=== PATIENT | male | born 1980 | race American Indian/Alaskan Native ===

== ENCOUNTER 2017-09-28 23:03 | Inpatient (IN) | payer MEDICAID, OTHER, SELFPAY ==
[2017-09-28 23:13] VITALS: BP 124/91; PULSE 123; RESP 18; TEMP 36.6
[2017-09-29] VITALS (7 sets, daily range): BP systolic 114–125; BP diastolic 61–91; PULSE 93–105; RESP 16–20; TEMP 36.3–37; O2SAT 97–100; BMI 33.3
--- NOTE | 2017-09-29 00:55 | ED_ITS ---
HPI - Nausea/Vomiting/Diarrhea General Chief complaint: Nausea/Vomiting/Diarrhea Stated complaint: bad hemorrhoids, no bowel movement Time Seen by Provider: 09/29/17 00:41 Source: patient Mode of arrival: ambulatory Limitations: no limitations History of Present Illness HPI Narrative: Patient 36-year-old male presents with vomiting for 5 days. He says he has been unable to have a bowel movement. He feels backed up no fevers. Diffuse abdominal pain. He says he has vomited at least of ?a gallon. Unable to keep anything down. He feels as though he does have some pressure in his rectum. Related Data Home Medications Medication Instructions Recorded Confirmed phenyleph-min oil-petrolatum 1 applic [place] QAM AND QHS 09/28/17 09/28/17 [Preparation H] Allergies Allergy/AdvReac Type Severity Reaction Status Date / Time No Known Drug Allergies Allergy Verified 09/28/17 23:17 Review of Systems Review of Systems All systems reviewed & are unremarkable except as noted in HPI and below Constitutional Denies chills, Denies fever(s), Denies lethargy and Denies weakness Cardiovascular Denies chest pain, Denies irregular heart rhythm, Denies lightheadedness, Denies palpitations, Denies dyspnea, Denies dyspnea on exertion and Denies orthopnea Respiratory Denies cough, Denies dyspnea, Denies dyspnea on exertion and Denies wheezing Gastrointestinal Gastrointestinal: Reports as per HPI Genitourinary Denies hematuria, Denies flank pain, Denies urinary incontinence and Denies urinary urgency Integumentary/Breasts Denies pruritus, Denies erythema, Denies rash and Denies wounds Neurologic Denies confusion, Denies focal weakness and Denies weakness Psychiatric Denies confusion Endocrine Denies palpitations Allergic/Immunologic Denies wheezing [facility] Medical History Arthritis (Acute) Hemorrhoid (Acute) Social History household members: family Smoking Status: Former smoker Exam Initial Vital Signs Initial Vital Signs: Vital Signs Temperature 98 F 09/28/17 23:13 Pulse Rate 123 H 09/28/17 23:13 Respiratory Rate 18 09/28/17 23:13 Blood Pressure 124/91 H 09/28/17 23:13 GENERAL: Alert young male appears in mild distress HEENT: Head atraumatic,EOMI, pupils reactive, dry mucous membranes CARDIOVASCULAR: Regular rate and rhythm without murmurs, rubs or gallops. RESPIRATORY: Breath sounds equal bilaterally, no wheezes rales or rhonchi. ABDOMEN: Distended no localization of pain kind of diffusely tender RECTAL: No internal rectal exam done. However the at that does not show any obvious abscess swelling or erythema. : No testicular erythema or pain : No CVA tenderness EXTREMITIES: Normal range of motion, no clubbing or edema. Neurovascularly intact NEUROLOGICAL: Alert and oriented x4.Normal gait and speech. Cranial nerves II through XII grossly intact. SKIN: Warm, dry, no laceration, no petechiae, no rashes or lesions. Course Orders Ordered: ED Orders 09/29/17 00:55 XR abdomen min 2V Stat Comprehensive Metabolic Panel Stat Lipase Stat 09/29/17 00:59 Complete Blood Count AUTO DIFF Stat 09/29/17 01:29 CT abdomen pelvis w con Stat 09/29/17 03:02 Blood Culture Stat Lactate (Lactic Acid) Stat 09/29/17 03:59 Consult to General Surgery Routine Acetaminophen (Tylenol) 650 mg PO Q6HR PRN PRN Reason: As Needed for Fever/Mild Pain Potassium Chloride 40 meq/ (Sodium Chloride) 520 mls @ 130 mls/hr IV NOW ONE Stop: 09/29/17 06:47 Last Admin: 09/29/17 05:04 Dose: 130 mls/hr Lactated Ringer's (Lactated Ringers) 1,000 mls @ 125 mls/hr IV CONT LYUDMILA Last Admin: 09/29/17 04:18 Dose: 125 mls/hr Ondansetron HCl (Zofran) 4 mg IV Q4HR PRN PRN Reason: Nausea And Vomiting Discontinued Medications Sodium Chloride (Normal Saline 0.9%) 1,000 mls @ 1,000 mls/hr IV CONT LYUDMILA Last Infusion: 09/29/17 02:22 Dose: 1,000 mls/hr Admin: 09/29/17 01:15 Dose: 1,000 mls/hr Piperacillin/Tazobactam/Dextrose (Zosyn) 3.375 gm in 50 mls @ 100 mls/hr IV NOW ONE Stop: 09/29/17 03:30 Last Admin: 09/29/17 05:03 Dose: 100 mls/hr Metronidazole (Flagyl) 500 mg in 100 mls @ 100 mls/hr IV NOW ONE Stop: 09/29/17 04:00 Last Infusion: 09/29/17 03:40 Dose: 100 mls/hr Admin: 09/29/17 03:34 Dose: 100 mls/hr Ondansetron HCl (Zofran) 4 mg IV NOW ONE Stop: 09/29/17 00:41 Last Admin: 09/29/17 01:15 Dose: 4 mg Pantoprazole Sodium (Protonix) 40 mg IV NOW ONE Stop: 09/29/17 00:41 Last Admin: 09/29/17 01:15 Dose: 40 mg Vital Signs - 8 hr 09/28/17 23:13 09/29/17 02:14 09/29/17 03:38 Temperature 98 F 98 F Pulse Rate 123 H 105 H 105 H Respiratory Rate 18 16 16 Blood Pressure 124/91 H 124/91 H Blood Pressure [Left Arm] 125/71 H Pulse Oximetry 100 100 09/29/17 04:02 Temperature 97.9 F Pulse Rate 99 H Respiratory Rate 16 Blood Pressure 117/71 Blood Pressure [Left Arm] Pulse Oximetry 100 MDM - Nausea/Vomiting/Diarrhea Lab Data Attestation: I reviewed the patient's lab results. Result diagrams: 09/29/17 00:59 09/29/17 00:55 Lab Results 09/29/17 09/29/17 09/29/17 Range/Units 00:55 00:59 03:02 WBC 25.6 H (4.5-11.0) X10^3/uL RBC 6.19 H (4.5-5.9) X10^6/uL Hgb 16.0 (13.5-17.5) g/dL Hct 47.6 (41-53) % MCV 77.0 L (80-100) fL MCH 25.9 L (26-34) PG MCHC 33.6 (30-36) % RDW 14.4 (11.6-14.8) % Plt Count 458 H (150-400) X10^3/uL Neut % (Auto) Not Reportable Lymph % (Auto) Not Reportable [place] % (Auto) Not Reportable Eos % (Auto) Not Reportable Baso % (Auto) Not Reportable Total Counted 100 Seg Neutrophils % 75.0 H (38-70) % Band Neutrophils % 1.0 L (3-7) % Lymphocytes % (Manual) 16.0 L (25-45) % Monocytes % (Manual) 8.0 (2-11) % Neutrophils # (Manual) 63906 H (0653-6747) /uL RBC Morphology Normal morphology Sodium 133 L (137-145) mmol/L Potassium 2.7 L* (3.4-5.1) mmol/L Chloride 79 L (98-107) mmol/L Carbon Dioxide 39 H (22-32) mmol/L BUN 41 H (9-20) mg/dL Creatinine 1.50 H (0.66-1.25) mg/dL Estimated GFR 53.6 L (>60) mL/min BUN/Creatinine Ratio 27.3 H (6-22) Glucose 157 H (70-100) mg/dL Lactate 1.2 (0.7-2.1) mmol/L Calcium 8.3 L (8.4-10.2) mg/dL Total Bilirubin 1.3 (0.2-1.3) mg/dL AST 48 (17-59) IU/L ALT 41 (21-72) IU/L Alkaline Phosphatase 140 H (38-126) U/L Total Protein 9.7 H* (6.3-8.2) g/dL Albumin 4.3 (3.5-5.0) g/dL Globulin 5.4 H (1.7-4.1) g/dL Albumin/Globulin Ratio 0.8 L (1.0-2.8) Lipase 114 (23-300) U/L Imaging Data CT scan - abdomen: Radiologist's impression: Night should report: Pelvic abscesses in perirectal and. Vesicular regions which may be the result of prior diverticulitis or colitis for example. Other etiology not included. Irregular complex rim enhancing cystic lesion noted along the cranial posterior aspect of the bladder measuring 2 x 3.9 cm compatible with abscess with adjacent sigmoid colon wall thickening. This lesion may or may not communicate with the: However no ectopic gas is seen. Inflammatory complex cystic lesion of the perirectal region measures approximately 3 x 3.1 x 3.2 cm between the rectum and the prostate compatible with abscess. Proximal sigmoid colon as segmental wall thickening. No definite inflamed diverticulum seen. This may be residual sequela from prior diverticulitis for example. The inflammatory free fluid in the pelvis. A regional prominent lymph nodes. Infiltration of presacral space. No signs of appendicitis. No diverticulitis or mechanical small-bowel obstructions. Abdominal x-ray: Attestation: I personally reviewed and interpreted this imaging study as follows: My impression: constipation MDM Narrative Medical decision making narrative: The patient has significant leukocytosis 25 house in. And hypokalemic. Decision for CT for further evaluation of abdominal process. Pain is improving no longer vomiting. CT confirms abscesses. Discuss case with surgery Dr. marley ledesma. Recommends Zosyn and Flagyl. He accepts patient for admission. Discharge Plan Departure Patient Disposition: Admitted As Inpatient Clinical Impression: Abscess, rectum, Acute hypokalemia Discharge Date/Time: 09/29/17 03:40 Interventions: ED Discharge Assessment Last Done: 09/29/17 03:40 Admit Date/Time: 09/29/17 03:27 Admit Provider: Milton Lacy
--- NOTE | 2017-09-29 00:55 | DI.RAD.S_ITS ---
PROCEDURE: XR ABDOMEN MIN 2V INDICATIONS: pain vomiting TECHNIQUE: 2 views of the abdomen were acquired. COMPARISON: None. FINDINGS: Surgical changes and devices: None. Bowel: No pneumoperitoneum. The bowel gas pattern is normal. Soft tissues: No masses; visualized solid organ contours appear normal in size. No suspicious abdominal calcifications. Bones: No suspicious bony abnormalities. IMPRESSION: Normal KUB Dictated by: Mick Trejo M.D. on 09/29/2017 at 8:21 Approved by: Mick Trejo M.D. on 09/29/2017 at 8:22
[2017-09-29 01:10] LABS: Add Manual Diff / Slide Review YES; Hematocrit 47.6 % (41-53); Mean Corpuscular HGB Conc 33.6 % (30-36); Mean Corpuscular Hemoglobin 25.9 PG (26-34); Platelet Count 458 X10^3/uL (150-400); Red Blood Cell Count 6.19 X10^6/uL (4.5-5.9); Red Cell Distribution Width 14.4 % (11.6-14.8); White Blood Cell Count 25.6 X10^3/uL (4.5-11.0)
[2017-09-29] MEDS: PANTOPRAZOLE 40 MG VIAL IV (01:15)
[2017-09-29] MEDS: ONDANSETRON 4 MG/2 ML INJ IV ×2 (01:15→07:46)
[2017-09-29] MEDS: SODIUM CHLORIDE 0.9% 1,000 ML 1000 ML IV (01:15)
[2017-09-29 01:22] LABS: Alanine Aminotransferase 41 IU/L (21-72); Albumin 4.3 g/dL (3.5-5.0); Albumin Globulin Ratio 0.8 (1.0-2.8); Alkaline Phosphatase 140 U/L (38-126); Aspartate Aminotransferase 48 IU/L (17-59); BUN Creatinine Ratio 27.3 (6-22); Bilirubin Total 1.3 mg/dL (0.2-1.3); Blood Urea Nitrogen 41 mg/dL (9-20); Calcium 8.3 mg/dL (8.4-10.2); Carbon Dioxide 39 mmol/L (22-32); Chloride 79 mmol/L (98-107); Estimated Glomerular Filt Rate 53.6 mL/min (>60); Globulin 5.4 g/dL (1.7-4.1); Glucose 157 mg/dL (70-100); Lipase 114 U/L (23-300); Sodium 133 mmol/L (137-145)
--- NOTE | 2017-09-29 01:29 | DI.CT.S_ITS ---
PROCEDURE: CT ABDOMEN PELVIS W CON INDICATIONS: vomiting, no bowel movement, very high White blood cell count TECHNIQUE: After the administration of intravenous contrast, 5 mm thick sections acquired from the diaphragm to the symphysis. 5 mm coronal and sagittal reformats were acquired. For radiation dose reduction, the following was used: automated exposure control, adjustment of mA and/or kV according to patient size. COMPARISON: [facility], MR, PELVIS W/O CONTRAST, 01/22/2009, 9:45. FINDINGS: Preliminary report by senior editor radiology Image quality: Excellent. ABDOMEN: Lung bases: Lung bases are clear. Heart size is normal. Solid organs: Liver is normal in size and enhancement, mild fatty infiltration adjacent to the falciform ligament.. Gallbladder appears normal. Biliary system is non dilated. Pancreas enhances normally. Spleen is normal in size and enhancement. No adrenal nodules. Kidneys demonstrate normal size and enhancement, without hydronephrosis. In the posterior lower pole of the right kidney is a 3.4 cm hypodense mass with internal attenuation of 23 and somewhat thickened, edematous appearing wall. There is mild perinephric fat stranding around the right lower pole. Also noted are 2 small cortical hypodensities in the superior pole of the right kidney, likely cysts but indeterminate. Peritoneum and bowel: Small bowel loops demonstrate normal wall thickness and caliber. The appendix is not seen, no pericecal inflammation noted. The colon appears normal through see proximal sigmoid region. More distally, there is diffuse wall thickening in the rectosigmoid colon. No diverticula identified. In the anterior wall of the rectum is a thickwalled fluid cavity measuring 2.0 x 2.8 cm in diameter by 2.1 cm cranial caudal. A similar fluid collection is present adjacent to the mid sigmoid colon, overlying the dome of the urinary bladder. This collection measures 1.8 x 3.6 cm in diameter by 1.6 cm craniocaudal. There is diffuse urinary bladder wall thickening which is likely reactive to surrounding inflammation, cystitis not excluded. There is additional fat stranding within the posterior pelvis and slightly prominent regional lymph nodes such as a 9 mm right iliofemoral node on series 2/image 68. No free air. No apparent air bubbles within the suspected abscesses. Nodes and vessels: No retroperitoneal or mesenteric adenopathy by size criteria. Aorta and inferior vena cava are normal in size. Miscellaneous: No ventral hernias. PELVIS: Genitourinary: Bladder wall thickness is increased. Prostate appears normal, the posterior margin abutting the anterior aspect of the rectal abscess. Miscellaneous: No inguinal hernias or adenopathy. Bones: No suspicious bony lesions. Grade 1 anterolisthesis L5-S1. Fatty marrow replacement is noted from the inferior margin of S1 through the sacrum and coccyx as seen on sagittal images and corresponding to previous MRI study. No vertebral body compression fractures. IMPRESSION: 1. Perirectal and sigmoid abscesses, presumably secondary to rectosigmoid colitis which could represent Crohn's disease or other etiology. Diverticulitis is not seen and doubted as potential etiology. Fatty marrow replacement in the sacrum and coccyx could reflect previous radiation for ankylosing spondylitis. Such radiation may have affected the blood supply for the rectosigmoid colon. Correlation with clinical history is recommended. 2. A 3.4 cm hypodense complex cystic mass is present in the lower pole of the right kidney. This could represent a renal carbuncle or tumor and correlation with urinalysis is advised. In absence of prior exams, non-emergent CT abdomen with renal protocol is suggested. Findings are concordant with the preliminary report. Findings were reviewed with the attending surgeon in person. Dictated by: Mick Trejo M.D. on 09/29/2017 at 8:31 Approved by: Mick Trejo M.D. on 09/29/2017 at 9:09
[2017-09-29 01:37] LABS: Neutrophils Absolute Manual 19456 /uL (3000-5900); RBC Morphology Normal Morphology; Total Cells Counted 100
[2017-09-29 01:55] LABS: HEMOLYSIS 52 (0-50)
[2017-09-29 01:58] LABS: Potassium 2.7 mmol/L (3.4-5.1); Total Protein 9.7 g/dL (6.3-8.2)
--- NOTE | 2017-09-29 02:13 | PC.NURSE ---
Notified Dr Cheatham of critical potassium and total protein called by lab. Crow
[2017-09-29 03:23] LABS: Lactate (Lactic Acid) 1.2 mmol/L (0.7-2.1)
[2017-09-29] MEDS: metroNIDAZOLE 500 MG/100 ML PIGGYBACK 100 MG IV ×2 (03:34→21:41)
[2017-09-29] MEDS: LACTATED RINGERS 1,000 ML 125 ML IV (04:18)
[2017-09-29] MEDS: PIPERACILLIN-TAZO 3.375 GM/50 ML FROZ.PIGGY IV ×2 (05:03→20:55)
[2017-09-29] MEDS: POTASSIUM CHLORIDE 40 MEQ in SODIUM CHLORIDE 0.9% 500 ML 130 ML IV (05:04)
--- NOTE | 2017-09-29 05:36 | PC.NURSE ---
pt arrived at 0400 via stretcher. pt is ambulatory. denies nausea. btx4. NPO. IVF. VSS. oriented pt to the room. call light in reach.
[2017-09-29] MEDS: ACETAMINOPHEN 325 MG TABLET 650 MG PO (08:02)
[2017-09-29] MEDS: DEXTROSE 5%-0.45NS W/KCL 40MEQ 1,000 ML 84 MEQ IV (10:50)
[2017-09-29 11:37] LABS: Add Manual Diff / Slide Review NO; Basophils Percent Auto 0.6 % (0-2); Eosinophils Percent Auto 0.3 % (2-4); Hematocrit 41.2 % (41-53); Hemoglobin 13.6 g/dL (13.5-17.5); Lymphocytes Percent Auto 9.1 % (25-40); Mean Corpuscular Hemoglobin 25.7 PG (26-34); Mean Corpuscular Volume 77.9 fL (80-100); Monocytes Percent Auto 7.5 % (3-14); Neutrophils Absolute Auto 14700 /uL (3000-5900); Neutrophils Percent Auto 82.5 % (50-75); Platelet Count 356 X10^3/uL (150-400); Red Blood Cell Count 5.29 X10^6/uL (4.5-5.9); Red Cell Distribution Width 14.2 % (11.6-14.8); White Blood Cell Count 17.8 X10^3/uL (4.5-11.0)
[2017-09-29 11:40] LABS: BUN Creatinine Ratio 25.5 (6-22); Blood Urea Nitrogen 28 mg/dL (9-20); Calcium 7.9 mg/dL (8.4-10.2); Carbon Dioxide 39 mmol/L (22-32); Chloride 88 mmol/L (98-107); Estimated Glomerular Filt Rate > 60.0 mL/min (>60); Glucose 139 mg/dL (70-100); HEMOLYSIS < 15 (0-50); Sodium 137 mmol/L (137-145)
[2017-09-29 11:54] LABS: Appearance Urine UA CLEAR; Bilirubin Urine UA NEGATIVE (NEGATIVE); Color Urine UA YELLOW; Glucose Urine UA NEGATIVE (Normal); Ketones Urine UA TRACE (NEGATIVE); Leukocyte Esterase Urine UA NEGATIVE (NEGATIVE); Nitrite Urine UA Negative (Negative); Occult Blood Urine UA 1+ (Negative); Protein Urine UA TRACE (Negative); Specific Gravity Urine UA <=1.005 (1.000-1.035)
[2017-09-29 12:11] LABS: Bacteria Urine Many (>30); Culture Indicated Urine Specimen Cultured; RBC Urine 1-5/HPF (0-5/HPF); WBC Urine 5-10/HPF (0-5/HPF)
--- NOTE | 2017-09-29 15:18 | HP_ITS ---
DATE OF SERVICE: 09/29/2017 HISTORY OF PRESENT ILLNESS: A 36-year-old white male comes to the emergency room in the middle of the night with vomiting, constipation, some lower abdominal pain. He had an evaluation including a CBC showing a 25,[address] white count[address] He had CT which initially was interpreted to show a perirectal abscess between the prostate and the rectum. However, on thorough evaluation of the CT scan with in- house radiologist this morning, I have reviewed the entire imaging sequence, and the patient very likely has inflammatory bowel disease involving the segment of the upper rectum, lower sigmoid. This looks like a form of organized colitis such as Crohn's or ulcerative colitis, and there is an abscess on the dome of the bladder adjacent to the lower sigmoid and then another abscess between the prostate and rectum. Both these abscesses measure, at the greatest diameter, 3 cm then they go down to about 1.5 cm. They are irregular. There is no free intraperitoneal air. Discussing this with the radiologist here, we do not think percutaneous drainage could be accomplished because of the location of these abscesses, and furthermore, both abscesses are small enough now that if they were the result of residual post drainage abscesses, we would be satisfied with their size, so I am going to attempt reading these abscesses with IV antibiotic therapy. There is no loculated air in the abscesses. There is no air in the bladder. There is no free intraperitoneal air. I have started the patient on Flagyl and Zosyn and taking a more thorough history, the patient describes having bloody diarrhea on and off intermittently for 2 years. He sought medical attention for that, and they told him he probably had hemorrhoids, although he does have watery, bloody diarrhea. My suspicion is the patient has Crohn's of the colon. Once the acute process has been treated with IV antibiotics, then of course he needs a colonoscopy. I do not want to attempt a colonoscopy at this time. I would prefer to treat the acute infectious process. So he remains on Zosyn and Flagyl. We will begin a liquid diet as tolerated and follow his CBCs. Patient's been afebrile since he's been here, so that's our plan and impression. PAST MEDICAL HISTORY: Patient denies diabetes, heart disease, or hypertension. MEDICATIONS: He is really on no medications. ALLERGIES: HE HAS NO KNOWN DRUG ALLERGIES. REVIEW OF SYSTEMS: Denies unusual shortness of breath or chest pain. GI: As mentioned in HPI. is negative. NEUROLOGIC: No strokes, TIAs, or seizures. PHYSICAL EXAMINATION GENERAL: Patient is morbidly obese. VITAL SIGNS: BMI is 33.4. Blood pressure 117/71. Heart rate in the 90s. Respirations 16. Temperature 97.9. HEENT: Ears, nose, and throat are normal. NECK: No adenopathy. CHEST: Lungs are clear. HEART: Regular rhythm. No murmur. ABDOMEN: Very minimal low suprapubic tenderness. The peroneal anal exam shows no tenderness. I did not attempt to palpate that abscess around the prostate, but I elicit no tenderness in the perineum. IMPRESSION: Probable Crohn disease of the sigmoid. Upper rectum with 2 small pericolic abscess. Derick Kenney - /madhavi/brian doc#: [id number]/job#: [id number] dd: 09/29/2017 10:09:00 dt: 09/29/2017 15:07:00 DICTATING /COPIES TO: Milton Lacy MD COPIES MNE: LUIS ENRIQUE
[2017-09-29 19:05] LABS: Acinetobacter baumannii Not Detected (Not Detect); Enterococcus species Not Detected (Not Detect); KPC (carbapenem-resist gene) Not Detected (Not Detect); Listeria monocytogenes Not Detected (Not Detect); Staphylococcus species Not Detected (Not Detect); Streptococcus agalactiae (Gr B Not Detected (Not Detect); Streptococcus pneumonia Not Detected (Not Detect); Streptococcus pyogenes (Gr A) Not Detected (Not Detect); Streptococcus species Not Detected (Not Detect)
[2017-09-29 19:06] LABS: Candida albicans Not Detected (Not Detect); Candida glabrata Not Detected (Not Detect); Candida krusei Not Detected (Not Detect); Candida parapsilosis Not Detected (Not Detect); Candida tropicalis Not Detected (Not Detect); Enterobacter cloacae complex Not Detected (Not Detect); Haemophilus influenzae Not Detected (Not Detect); Neisseria meningitidis Not Detected (Not Detect); Proteus species Not Detected (Not Detect); Pseudomonas aeruginosa Not Detected (Not Detect); Serratia marcescens Not Detected (Not Detect)
[2017-09-29 19:07] LABS: E. coli Detected (Not Detect)
--- NOTE | 2017-09-29 20:40 | PC.NURSE ---
SHIFT NOTE A&Ox3. pt prefers to stay in bed to catch up on rest. pt states slight abdominal discomfort and discomfort with passing gas. also c/o lower back pain rated 4/10, states it's tolerable. denies any N/V although poor PO intake. received call from lab stating postive blood cultures for gram negative rods, ID'd as E. coli. Notified Dr. Lacy of lab results and that pt does not have any scheduled antibiotics (last does appear to be 1x doses). received orders to have antibiotics every 6 hours scheduled. call light within reach.
[2017-09-30 00:04] VITALS: BP 109/64; PULSE 98; RESP 16; TEMP 36.4; O2SAT 100
[2017-09-30] MEDS: ACETAMINOPHEN 325 MG TABLET 650 MG PO (00:45)
[2017-09-30] MEDS: DEXTROSE 5%-0.45NS W/KCL 40MEQ 1,000 ML 84 MEQ IV ×2 (00:45→14:41)
[2017-09-30] MEDS: PIPERACILLIN-TAZO 3.375 GM/50 ML FROZ.PIGGY IV ×4 (03:36→20:28)
[2017-09-30] MEDS: metroNIDAZOLE 500 MG/100 ML PIGGYBACK 100 MG IV ×4 (04:45→21:32)
[2017-09-30 05:39] VITALS: BP 119/61; PULSE 93; RESP 16; TEMP 36.3; O2SAT 99
[2017-09-30 08:00] VITALS: BP 125/66; PULSE 96; RESP 22; TEMP 37.1; O2SAT 99
[2017-09-30 11:31] LABS: Add Manual Diff / Slide Review NO; Basophils Percent Auto 0.6 % (0-2); Eosinophils Percent Auto 0.3 % (2-4); Hematocrit 39.9 % (41-53); Hemoglobin 13.4 g/dL (13.5-17.5); Lymphocytes Percent Auto 6.4 % (25-40); Mean Corpuscular HGB Conc 33.5 % (30-36); Mean Corpuscular Volume 77.4 fL (80-100); Monocytes Percent Auto 7.2 % (3-14); Neutrophils Absolute Auto 19800 /uL (3000-5900); Neutrophils Percent Auto 85.5 % (50-75); Platelet Count 416 X10^3/uL (150-400); Red Blood Cell Count 5.15 X10^6/uL (4.5-5.9); Red Cell Distribution Width 14.5 % (11.6-14.8); White Blood Cell Count 23.2 X10^3/uL (4.5-11.0)
[2017-09-30 12:58] LABS: BUN Creatinine Ratio 12.5 (6-22); Blood Urea Nitrogen 10 mg/dL (9-20); Calcium 8.1 mg/dL (8.4-10.2); Carbon Dioxide 36 mmol/L (22-32); Chloride 95 mmol/L (98-107); Estimated Glomerular Filt Rate > 60.0 mL/min (>60); Glucose 120 mg/dL (70-100); HEMOLYSIS 22 (0-50); Potassium 3.5 mmol/L (3.4-5.1); Sodium 137 mmol/L (137-145)
--- NOTE | 2017-09-30 14:30 | PC.NURSE ---
pt alert and oriented, vss, pain stated to be under control. Continues to suffer from firm, tender abdomen. States to be in a constant state of mild nauses (denied prns). IV antibiotics continued with IVFs, up to bathroom multiple times with one small nugget of BM produced. Continues with liquid diet, tolerating well. Educated grandparent/support persons importance of ambulation.
--- NOTE | 2017-09-30 15:03 | CM.DANOTE ---
Patient is a 36 year old male who was admitted on 09/29/17 for pain with bowel movements. Pt has [facility] for insurance and his PCP is not listed. EMR was reviewed. Per MD, pt making progress with IV-Abx and likely Crohns. Per RN, pt still on liquid diet and no orders yet to advance pt's diet. SW met bedside with pt and explained role and he confirmed that he lives in [place] with his grandparents and has other local supportive family. Pt states that he helps care for his grandparents although they are still mostly Independent and pt is not working. Pt is typically Independent with ADL's and is already aware that he needs to apply for Medicaid and be denied so that his [facility] will cover his medical needs. Pt states his family is aware and helping to complete this process. Pt does not anticipate any SW needs at d/c and preference is to d/c home with family support when medically stable. Pt states he is starting to feel a little better. Plan: SW to continue to follow for likely pt d/c home with family when medically stable. SW to follow once pt's diet is advanced to determine if any further d/c planning needs identified. VANE Graff Discharge Planning/Care Management CM Discharge Assessment Start: 09/30/17 15:01 Freq: Status: Active Protocol: Document 09/30/17 15:01 (Rec: 09/30/17 15:02 [id number]) Discharge Planning Assessment Assigned Speech Therapy Teacher VANE History Provided By Patient Has Patient been admitted in last 30 No days? Is this patient on Medicare? No Is the admit diagnosis the same? Yes Comment Likely Crohns Prior Living Arrangements House Household Members family Type of transporation used prior to Drives own vehicle admit Independent with ADL's Yes Is patient alert and oriented? Yes Caregiver for Another Yes: Lives with grandparents Referrals Initiated None needed Discharge Plan Home Transportation Arrangement Patient has local family who can likely provide transport Review Status In Process Next Review Type Discharge Review
[2017-09-30 15:32] VITALS: BP 125/68; PULSE 97; RESP 16; TEMP 37.7; O2SAT 100
[2017-09-30 19:27] VITALS: BP 123/70; PULSE 92; RESP 17; TEMP 37.2; O2SAT 99
--- NOTE | 2017-09-30 22:09 | PC.NURSE ---
Addendum entered by Genny Hong R.N. 09/30/17 23:09: pt with low-grade fever throughout the shift 99-100F. pt denies any fevers/chills. Original Note: SHIFT NOTE A&ox3. pt denies any abdominal pain, nausea, or vomiting. pt had 1 small soft stool, noted to have some blood in it which pt states was his normal before coming into the hospital. modified independent with ADLs, pt ambulating in hallway x1 this shift. pt noted to be eating noodle soup brought in by family, educated pt on full liquid diet order, pt verbalized understanding of not eating veggies and meat from soup. call light within reach.
[2017-10-01] VITALS (7 sets, daily range): BP systolic 118–135; BP diastolic 63–79; PULSE 90–112; RESP 16–18; TEMP 36.3–37.4; O2SAT 97–100
[2017-10-01] MEDS: PIPERACILLIN-TAZO 3.375 GM/50 ML FROZ.PIGGY IV ×4 (03:42→20:35)
[2017-10-01] MEDS: metroNIDAZOLE 500 MG/100 ML PIGGYBACK 100 MG IV ×4 (04:26→21:35)
--- NOTE | 2017-10-01 06:41 | PN_ITS ---
DATE OF SERVICE: 09/30/2017 SUBJECTIVE: The patient has been in the hospital a little over 24 hours now with, what my presumptive diagnosis is probable Crohn disease of the rectosigmoid junction with 2 small pericolic abscesses, one on the dome of the bladder and one between the rectum and prostate. Subjectively, he is feeling better. He has less abdominal pain. Actually, at the moment, no abdominal pain. He is not having any bloody diarrhea. OBJECTIVE: He is resting comfortably in bed. He is afebrile. LABORATORY DATA: I do not have his morning labs. Yesterday, his white count had fallen from 25,000 to 17,000. He remains on IV Flagyl and Zosyn. IMPRESSION: Improving on IV antibiotic therapy. PLAN: Continue the same therapy. Ultimately, he needs a colonoscopy with the eye on a possible resection of the rectosigmoid junction, depending on the findings of his colonoscopy. Derick Kenney - William/darling doc#: [id number]/job#: [id number] dd: 09/30/2017 10:45:00 dt: 10/01/2017 06:35:00 DICTATING /COPIES TO: Milton Lacy MD COPIES MNE: LUIS ENRIQUE
[2017-10-01] MEDS: DEXTROSE 5%-0.45NS W/KCL 40MEQ 1,000 ML 84 MEQ IV (08:04)
[2017-10-01 09:07] LABS: Add Manual Diff / Slide Review NO; Basophils Percent Auto 0.8 % (0-2); Eosinophils Percent Auto 0.7 % (2-4); Hematocrit 38.4 % (41-53); Hemoglobin 12.8 g/dL (13.5-17.5); Lymphocytes Percent Auto 9.8 % (25-40); Mean Corpuscular HGB Conc 33.3 % (30-36); Mean Corpuscular Hemoglobin 26.1 PG (26-34); Mean Corpuscular Volume 78.5 fL (80-100); Monocytes Percent Auto 7.3 % (3-14); Neutrophils Absolute Auto 17400 /uL (3000-5900); Neutrophils Percent Auto 81.4 % (50-75); Platelet Count 427 X10^3/uL (150-400); Red Blood Cell Count 4.89 X10^6/uL (4.5-5.9); Red Cell Distribution Width 14.3 % (11.6-14.8); White Blood Cell Count 21.3 X10^3/uL (4.5-11.0)
--- NOTE | 2017-10-01 09:21 | PN_ITS ---
DATE OF SERVICE: 10/01/2017 SUBJECTIVE: The patient has been in the hospital now for 48 hours. He has what I presume is Crohn colitis of the upper rectum and lower sigmoid with 2 pelvic abscesses. We are treating him with IV antibiotic therapy. These are small abscesses, measuring 2 cm to 3 cm each. Subjectively, the patient feels well with virtually no abdominal pain now. OBJECTIVE: He is afebrile. He has remained afebrile since he has been here. He is now pain-free. He had a small bowel movement this morning. He is tolerating a full liquid diet. LABORATORY DATA: I can't seem to get the laboratory to draw morning labs, so I do not have his white count this morning. Actually, his white count had been 25,000 and then 17,000, and then yesterday morning 23,000 again, and we don't have one from this morning. PLAN: My plan is to continue IV antibiotic therapy. The patient definitely needs a colonoscopy sometime in the next several weeks after this acute process has resolved, and we have control of the infection. At the moment he still has, as of yesterday morning, an elevated white count. We will repeat it this morning. Continue dual antibiotic therapy of Zosyn and Flagyl. Derick Kenney - /madhavi/darling doc#: [id number]/job#: [id number] dd: 10/01/2017 08:38:00 dt: 10/01/2017 09:12:00 DICTATING /COPIES TO: Milton Lacy MD COPIES MNE: LUIS ENRIQUE
--- NOTE | 2017-10-01 14:55 | PC.NURSE ---
1445 Pt resting in bed, A&Ox3, denies pain, cont w/IVF and IV antibx, oseas well. Afebrile. taking in full liq diet, denies nausea. Has had sml amt loose, brown BM x 2 this shift. Pt voiding brp/urinal. Family at bedside. Pt pleasant & cooperative.
[2017-10-02] MEDS: ONDANSETRON 4 MG/2 ML INJ IV ×3 (01:11→17:09)
[2017-10-02] MEDS: DEXTROSE 5%-0.45NS W/KCL 40MEQ 1,000 ML 84 MEQ IV ×2 (01:11→15:02)
[2017-10-02] MEDS: PIPERACILLIN-TAZO 3.375 GM/50 ML FROZ.PIGGY IV ×4 (02:34→21:09)
[2017-10-02] MEDS: metroNIDAZOLE 500 MG/100 ML PIGGYBACK 100 MG IV ×4 (03:52→22:33)
[2017-10-02 05:12] LABS: Add Manual Diff / Slide Review NO; Basophils Percent Auto 0.6 % (0-2); Eosinophils Percent Auto 0.8 % (2-4); Hemoglobin 11.9 g/dL (13.5-17.5); Lymphocytes Percent Auto 9.1 % (25-40); Mean Corpuscular Volume 78.8 fL (80-100); Monocytes Percent Auto 7.2 % (3-14); Neutrophils Absolute Auto 15000 /uL (3000-5900); Neutrophils Percent Auto 82.3 % (50-75); Platelet Count 451 X10^3/uL (150-400); Red Blood Cell Count 4.57 X10^6/uL (4.5-5.9); Red Cell Distribution Width 14.9 % (11.6-14.8); White Blood Cell Count 18.2 X10^3/uL (4.5-11.0)
[2017-10-02 05:21] VITALS: BP 127/77; PULSE 99; RESP 16; TEMP 36.2; O2SAT 99
[2017-10-02 08:23] VITALS: BP 125/72; PULSE 90; RESP 18; TEMP 36.6; O2SAT 99
[2017-10-02 15:57] VITALS: BP 121/71; RESP 18; TEMP 36.3; O2SAT 100
--- NOTE | 2017-10-02 16:09 | P.PN_ITS ---
Subjective Date Patient Seen: 10/02/17 Time Patient Seen: 12:07 Interval history: Derick reports that he continues to feel a little better. He is not feeling nauseated and he reports he is passing flatus. He still does not feel like eating and has not consumed any portion of his tray from breakfast or lunch. He says he still uncomfortable. He is lying on his side in the position holding a pillow. Exam Vital Signs (past 8 hours): - 10/02/17 08:23 10/02/17 15:57 Temperature 97.8 F 97.3 F L Pulse Rate 90 Respiratory Rate 18 18 Blood Pressure 125/72 H 121/71 H Pulse Oximetry 99 100 Oxygen Delivery Method Room Air Oxygen Flow Rate 0 Narrative Exam Narrative: Abdomen is soft but tender to palpation diffusely. More pronounced tenderness below the umbilicus. Voluntary guarding. No true rebound. Objective Labs Result Diagrams: 10/02/17 05:00 09/30/17 11:15 Labs: Laboratory Results - last 24 hr 10/02/17 05:00 WBC 18.2 H RBC 4.57 Hgb 11.9 L Hct 36.0 L MCV 78.8 L MCH 26.0 MCHC 33.0 RDW 14.9 H Plt Count 451 H Neut % (Auto) 82.3 H Lymph % (Auto) 9.1 L [place] % (Auto) 7.2 Eos % (Auto) 0.8 L Baso % (Auto) 0.6 Neut # (Auto) 13747 H Assessment & Plan Plan: Assessment/Plan Narrative: Patient continues on Zosyn and Flagyl. His white count is trending down, though slowly. His pain is also responding. We will keep him on his current doses of antibiotics. Encourage clear fluids intake if not full liquids.
[2017-10-02 19:43] VITALS: BP 127/69; PULSE 100; RESP 20; TEMP 36.7; O2SAT 97
[2017-10-03 00:30] VITALS: BP 134/86; PULSE 89; RESP 18; TEMP 36.6; O2SAT 100
[2017-10-03] MEDS: PIPERACILLIN-TAZO 3.375 GM/50 ML FROZ.PIGGY IV ×4 (02:16→21:17)
[2017-10-03] MEDS: DEXTROSE 5%-0.45NS W/KCL 40MEQ 1,000 ML 84 MEQ IV (03:37)
[2017-10-03] MEDS: metroNIDAZOLE 500 MG/100 ML PIGGYBACK 100 MG IV ×4 (03:37→21:16)
[2017-10-03 03:51] VITALS: BP 124/88; PULSE 135; RESP 20; TEMP 36.3; O2SAT 98
[2017-10-03 05:08] LABS: Add Manual Diff / Slide Review NO; Eosinophils Percent Auto 0.8 % (2-4); Hematocrit 36.8 % (41-53); Lymphocytes Percent Auto 12.3 % (25-40); Mean Corpuscular HGB Conc 32.6 % (30-36); Mean Corpuscular Hemoglobin 25.8 PG (26-34); Mean Corpuscular Volume 79.2 fL (80-100); Monocytes Percent Auto 6.8 % (3-14); Neutrophils Absolute Auto 13100 /uL (3000-5900); Neutrophils Percent Auto 79.1 % (50-75); Platelet Count 583 X10^3/uL (150-400); Red Blood Cell Count 4.65 X10^6/uL (4.5-5.9); Red Cell Distribution Width 14.8 % (11.6-14.8); White Blood Cell Count 16.6 X10^3/uL (4.5-11.0)
[2017-10-03 09:18] VITALS: BP 131/81; PULSE 103; RESP 16; TEMP 36.4; O2SAT 100
[2017-10-03] MEDS: ONDANSETRON 4 MG/2 ML INJ IV ×3 (12:03→20:17)
[2017-10-03 12:10] VITALS: BP 141/99; PULSE 100; RESP 16; TEMP 36.6; O2SAT 100
--- NOTE | 2017-10-03 12:19 | PC.NURSE ---
Addendum entered by Leonor Osei R.N. 10/03/17 14:55: patient had 200cc's bile emesis this afternoon while in the bathroom having small diarrhea stool. states he was not straining. only ate a few bites of soup for lunch. Original Note: patient states he feels tired from freq trips to the bathroom, including overnight which interrupts his sleep. states he is still having loose stools. nausea intermitt. he reports taking approx 6 sm bites of hot cereal this am at breakfast. he had nausea, w/ emesis/dry heaves mostly spit per inspector missile. zofran given. patient ambulated in halls and is up in recliner. states his abd discomfort is mostly a fullness sensation. declines need for pain medications.
--- NOTE | 2017-10-03 14:56 | PM.PN.1 ---
Subjective Date Patient Seen: 10/03/17 Time Patient Seen: 12:56 Interval history: Derick is in better spirits today. He is walking the halls for the 1st time today. He tells me again he is bored and wants to go home. He is asking about his white blood cell count wants to know if it is getting better. He says his pain is much better. His complaint today is that his back hurts from laying in bed so much. Exam Vital Signs (past 8 hours): - 10/03/17 09:18 10/03/17 12:10 Temperature 97.5 F L 97.8 F Pulse Rate 103 H 100 H Respiratory Rate 16 16 Blood Pressure 131/81 H 141/99 H Pulse Oximetry 100 100 Oxygen Delivery Method Room Air Oxygen Flow Rate 0 Narrative Exam Narrative: Abdomen is soft and minimally tender to palpation. Active bowel sounds. No rebound or guarding. Much improved. Extremities: Warm and well perfused Objective Labs Result Diagrams: 10/03/17 04:45 09/30/17 11:15 Labs: Laboratory Results - last 24 hr 10/03/17 04:45 WBC 16.6 H RBC 4.65 Hgb 12.0 L Hct 36.8 L MCV 79.2 L MCH 25.8 L MCHC 32.6 RDW 14.8 Plt Count 583 H Neut % (Auto) 79.1 H Lymph % (Auto) 12.3 L [place] % (Auto) 6.8 Eos % (Auto) 0.8 L Baso % (Auto) 1.0 Neut # (Auto) 33167 H [facility] CLIA ID [id number] [address] [place] [address] RUN DATE: 10/03/17 Specimen Inquiry PAGE 1 RUN TIME: 7628 Name: Derick Kenney Age/Sex: 36/M Attend Dr: Milton Lacy MD Unit#: [id number] : 1980Location: [facility] 231-1 Re09/29/17 Disch: Status: ADM IN Next Appt: Unknown Fax to: SPEC #: [id number] KAITLYNN: 09/29/17-301 STATUS: COMP REQ #: [id number] RECD: 09/29/17 [facility] [address]: Keesha Cheatham D.O. SOURCE: Blood ENTR: 09/29/17 OT : ELIEL: ORDERED: Bcult Procedure Result Verified Site Blood Culture Final 10/01/17 Organism 1 Escherichia coli Called To: [facility] 1. Escherichia coli M.I.C. RX --------- --- * Amikacin S * Ampicillin S * Ampicillin/Sulbactam S * Aztreonam S * Cefazolin S * Cefepime S Cefalotin S * Cefotetan S * Ceftizoxime S * Ceftriaxone S * Cefuroxime S * Ciprofloxacin S * Doripenem S * Ertapenem S * Gentamicin R * Imipenem S * Levofloxacin S * Meropenem S * Moxifloxacin S * Nalidixic Acid S * Norfloxacin S * Piperacillin S * Ticarcillin S * Tigecycline S * Tobramycin I * Trimethoprim/Sulfamethoxazole S * Piperacillin/Tazobactam S Assessment & Plan Plan: Assessment/Plan Narrative: 1. Likely Crohn's disease with intra-abdominal abscesses 2. Urosepsis with E coli bacteremia.-he is well covered with Zosyn and Flagyl. 3. White count is trending down so we will continue current treatment. Once white count drops below 10, we can likely switch to oral medication and allow him to go home.
[2017-10-03 15:24] VITALS: BP 130/77; PULSE 92; RESP 18; TEMP 37.1; O2SAT 100
[2017-10-03 20:02] VITALS: BP 133/74; PULSE 88; RESP 18; TEMP 37.1; O2SAT 99
[2017-10-04 01:26] VITALS: BP 100/57; PULSE 85; RESP 15; TEMP 36.6; O2SAT 100
[2017-10-04] MEDS: PIPERACILLIN-TAZO 3.375 GM/50 ML FROZ.PIGGY IV ×4 (01:53→20:09)
[2017-10-04] MEDS: metroNIDAZOLE 500 MG/100 ML PIGGYBACK 100 MG IV ×4 (02:32→21:30)
[2017-10-04] MEDS: ACETAMINOPHEN 325 MG TABLET 650 MG PO ×2 (02:34→15:35)
[2017-10-04 04:41] VITALS: BP 116/76; PULSE 80; RESP 15; TEMP 36.8; O2SAT 100
[2017-10-04 05:25] LABS: Add Manual Diff / Slide Review NO; Basophils Percent Auto 0.8 % (0-2); Eosinophils Percent Auto 1.2 % (2-4); Hematocrit 35.3 % (41-53); Hemoglobin 11.7 g/dL (13.5-17.5); Mean Corpuscular HGB Conc 33.2 % (30-36); Mean Corpuscular Hemoglobin 26.2 PG (26-34); Monocytes Percent Auto 6.7 % (3-14); Neutrophils Absolute Auto 10700 /uL (3000-5900); Neutrophils Percent Auto 80.3 % (50-75); Platelet Count 547 X10^3/uL (150-400); Red Blood Cell Count 4.47 X10^6/uL (4.5-5.9); Red Cell Distribution Width 14.5 % (11.6-14.8); White Blood Cell Count 13.3 X10^3/uL (4.5-11.0)
[2017-10-04] MEDS: DEXTROSE 5%-0.45NS W/KCL 40MEQ 1,000 ML 84 MEQ IV ×2 (05:57→21:30)
[2017-10-04 08:00] VITALS: BP 124/74; PULSE 82; RESP 18; TEMP 36.7; O2SAT 99
[2017-10-04 12:00] VITALS: BP 120/69; PULSE 79; RESP 18; TEMP 36.6; O2SAT 100
[2017-10-04 16:19] VITALS: BP 142/86; PULSE 89; RESP 18; TEMP 36.4; O2SAT 99
--- NOTE | 2017-10-04 18:50 | P.PN_ITS ---
Subjective Date Patient Seen: 10/04/17 Time Patient Seen: 18:48 Interval history: Derick reports he is feeling better. He says his pain is not really there anymore but he feels little gassy. He is having quite a bit of diarrhea. Exam Vital Signs (past 8 hours): - 10/04/17 12:00 10/04/17 16:19 Temperature 97.9 F 97.6 F Pulse Rate 79 89 Respiratory Rate 18 18 Blood Pressure 120/69 142/86 H Pulse Oximetry 100 99 Oxygen Delivery Method Room Air Oxygen Flow Rate 0 Narrative Exam Narrative: Much softer, no tenderness elicited, active bowel sounds. Objective Labs Result Diagrams: 10/04/17 04:54 09/30/17 11:15 Labs: Laboratory Results - last 24 hr 10/04/17 04:54 WBC 13.3 H RBC 4.47 L Hgb 11.7 L Hct 35.3 L MCV 79.0 L MCH 26.2 MCHC 33.2 RDW 14.5 Plt Count 547 H Neut % (Auto) 80.3 H Lymph % (Auto) 11.0 L [place] % (Auto) 6.7 Eos % (Auto) 1.2 L Baso % (Auto) 0.8 Neut # (Auto) 60461 H Assessment & Plan Plan: Assessment/Plan Narrative: Urosepsis/urinary tract infection in combination with enteritis and possibly Crohn's disease. We are going to continue his current antibiotics and plan to recheck his labs on Monday. If he has dropped below 10 on Monday, our plan is to let him go home. I am going to check his stool for C diff since he is having so much diarrhea.
[2017-10-04] MEDS: ONDANSETRON 4 MG/2 ML INJ IV (19:35)
[2017-10-04 20:15] VITALS: BP 130/74; PULSE 75; RESP 18; TEMP 36.5; O2SAT 100
--- NOTE | 2017-10-04 22:37 | PC.NURSE ---
10/04 2236 - pt alert and oriented x4, VSS on RA, eating only ounces of full liquid meals, drinking home brought juices, lemonades, gatorades. Pt states to have a fullness feeling with minimal intake, denies nausea with intakes. Complained of nausea once with relief provided by PRN antiemetic. PRN tylenol for back pain. IV antibiotics continued. Had shower this shift.
[2017-10-05 00:32] VITALS: BP 137/87; PULSE 87; RESP 16; TEMP 36.4; O2SAT 100
[2017-10-05] MEDS: ONDANSETRON 4 MG/2 ML INJ IV ×2 (00:38→15:15)
[2017-10-05 01:42] LABS: Clostridium Difficile Tox PCR Negative for C. diff
[2017-10-05] MEDS: PIPERACILLIN-TAZO 3.375 GM/50 ML FROZ.PIGGY IV ×4 (02:42→20:09)
[2017-10-05] MEDS: ACETAMINOPHEN 325 MG TABLET 650 MG PO (04:22)
[2017-10-05 04:24] VITALS: BP 136/85; PULSE 86; RESP 16; TEMP 36.8; O2SAT 98
[2017-10-05] MEDS: metroNIDAZOLE 500 MG/100 ML PIGGYBACK 100 MG IV ×4 (04:26→21:53)
[2017-10-05 08:00] VITALS: BP 136/86; PULSE 79; RESP 16; TEMP 36.6; O2SAT 99
[2017-10-05] MEDS: DEXTROSE 5%-0.45NS W/KCL 40MEQ 1,000 ML 84 MEQ IV (09:56)
[2017-10-05 13:27] VITALS: BP 136/83; PULSE 79; RESP 15; TEMP 36.7; O2SAT 100
--- NOTE | 2017-10-05 15:18 | PC.NURSE ---
PT HAD BOUT OF N/V DURING BEDSIDE SHIFT REPORT. 300 ML EMESIS. MEDICATED WITH 4 MG ZOFRAN PER EMAR.
[2017-10-05 15:30] VITALS: BP 121/76; PULSE 84; RESP 18; TEMP 36.4; O2SAT 98
--- NOTE | 2017-10-05 15:43 | PM.PN.1 ---
Subjective Date Patient Seen: 10/05/17 Time Patient Seen: 15:43 Interval history: Derick denies any pain but reports he did have 1 episode of vomiting today. He is feeling fine now. He also reports that he had a more solid bowel movement earlier today. He has continued to walk in the halls without difficulty. He has been afebrile today. Exam Vital Signs (past 8 hours): - 10/05/17 08:00 10/05/17 13:27 Temperature 97.9 F 98.1 F Pulse Rate 79 79 Respiratory Rate 16 15 Blood Pressure 136/86 H 136/83 H Pulse Oximetry 99 100 Oxygen Delivery Method Room Air Oxygen Flow Rate 0 Narrative Exam Narrative: Abdomen is soft and nontender. He does have hyperactive bowel sounds. Objective Labs Result Diagrams: 10/04/17 04:54 09/30/17 11:15 Labs: Laboratory Results - last 24 hr 10/05/17 00:40 C. difficile Tox (PCR) Negative for c. diff Assessment & Plan Plan: Assessment/Plan Narrative: 1. Improving after admission for urinary tract infection and intraperitoneal abscesses likely secondary to Crohn's disease. 2. Recheck labs in the morning 3. Advanced diet as desired
--- NOTE | 2017-10-05 17:02 | PC.NURSE ---
Addendum entered by Honey Jose R.N. 10/05/17 22:21: Pt up in hallway x two. Another episode of emesis, relief w/ zofran. Relatively uneventful evening, Call light w/in reach. Continue w/plan of care. Original Note: Pt had emesis at 1515, med w/zofran w/good relief. Denies discomfort at this time. IV D5 1/2 NS w/40meq KCL @ 84cc/hr infusing into the RAC via pump w/o incidence. Up amb. in hallway independently. Call light w/in reach.
[2017-10-05 20:38] VITALS: BP 137/87; PULSE 86; RESP 86; TEMP 36.6; O2SAT 98
--- NOTE | 2017-10-06 | DI.CT.S_ITS ---
PROCEDURE: CT ABDOMEN PELVIS W CON INDICATIONS: Intra-abdominal abscess, bowel obstruction TECHNIQUE: After the administration of oral and intravenous contrast, 5 mm thick sections acquired from the diaphragms to the symphysis. 5 mm thick coronal and sagittal reformats were performed. For radiation dose reduction, the following was used: automated exposure control, adjustment of mA and/or kV according to patient size. COMPARISON: [facility], CT, CT ABDOMEN PELVIS W CON, 09/29/2017, 1:27. FINDINGS: Image quality: Excellent. ABDOMEN: Lung bases: No acute consolidation. Mild bibasilar dependent scarring/atelectasis. Heart size is normal. Minimal distal esophageal circumferential wall thickening, nonspecific. This could be further evaluated with endoscopy as clinically warranted. Solid organs: Liver is normal in size and enhancement. Gallbladder negative. Biliary system is non-dilated. Pancreas enhances normally. Spleen is normal in size and enhancement. No adrenal nodules. No hydronephrosis. There is redemonstration of a right renal lesion measuring 4.4 x 5.4 cm on image 55. There is fluid attenuation centrally. No interval change. Peritoneum and bowel: No free air identified. There is inflammatory stranding the region of the sigmoid colon and rectosigmoid junction. The previously visualized fluid collection anterior to the rectum appears less conspicuous and slightly decreased in size measuring approximately 9 mm. There is no definite change in the additional fluid collection seen involving the dome of the urinary bladder measuring 4.9 x 1.5 cm. There is prominent gaseous distention of the colon measuring up to 7.8 cm which has progressed since prior study. No definite transition point is seen although this tapers to the rectosigmoid junction and sigmoid colon is filled with fluid. Nodes and vessels: No retroperitoneal or mesenteric adenopathy. Aorta and inferior vena cava are normal in caliber. Miscellaneous: No ventral hernias. PELVIS: Genitourinary: Bladder grossly unremarkable. Miscellaneous: No inguinal hernias or adenopathy. Bones: No suspicious bony lesions. Incidentally noted ankylosis of the sacroiliac joints No vertebral body compression fractures. IMPRESSION: Interval decrease in size of the fluid collection involving anterior wall of the rectum since 09/29/17. Persistent diffuse mild inflammatory stranding in the rectosigmoid junction as before. Additional fluid collection overlying the dome of the bladder is grossly unchanged. No new fluid collection. Development of gaseous distention of the colon which may be due to ileus versus developing distal bowel obstruction. Recommend clinical correlation and if necessary continued surveillance with abdominal radiographs. Heterogeneous solid and cystic mass involving the right kidney which could represent renal abscess versus tumor. Recommend further evaluation with dedicated renal protocol CT with contrast as previously suggested. Recommend correlation with urinalysis data and urology consultation. Dictated by: Shabbir Zuleta M.D. on 10/06/2017 at 8:02 Approved by: Shabbir Zuleta M.D. on 10/06/2017 at 8:53
--- NOTE | 2017-10-06 | DI.CT.S_ITS ---
PROCEDURE: CT ABDOMEN WO/W CON INDICATIONS: Renal lesion/abscess TECHNIQUE: Optional 5 mm thick noncontrast images acquired from the diaphragm to the iliac crests. After the administration of intravenous contrast, 5 mm thick images again acquired from the diaphragm to the iliac crests in the arterial and urographic phases. 5 mm thick coronal and sagittal reformats were then acquired. For radiation dose reduction, the following was used: automated exposure control, adjustment of mA and/or kV according to patient size. COMPARISON: [facility], CT, CT ABDOMEN PELVIS W CON, 09/29/2017, :27. [facility], CT, CT ABDOMEN PELVIS W CON, 10/06/2017, 8:18. FINDINGS: Image quality: Excellent. Lung bases: Bibasilar scarring/atelectasis are seen. Heart size is normal. Genitourinary: There is no hydronephrosis. Normal contrast excretion is noted bilaterally with normal contrast opacification of bilateral proximal to mid ureters. No filling defect is seen. Retained IV contrast within renal collecting systems from earlier CT of abdomen and pelvis study is seen. Fairly well-defined hypodense area within mid to lower pole of right renal cortex is again seen, and measures approximately 3.6 x 3.6 x 3.6 cm in size on the current study which is slightly increased in size compared to 3.4 cm measured on previous study dated 09/29/17. The size difference from earlier study on the same day is likely due to user perception as well as timing of contrast. This structure measures approximately 18 Hounsfield units during all phases of the scan and show no evidence of enhancement. No enhancing renal lesion is seen. No significant perinephric fat stranding or fluid is noted on the current study. Other solid organs: There is mild hepatic steatosis. No discrete hepatic lesion. Gallbladder is within normal limits. Biliary system is non dilated. Pancreas enhances normally. Spleen is normal in size and enhancement. No adrenal nodules. There is no gross bowel wall thickening. Small hiatal hernia is seen. No peritoneal free fluid or free air. Distended colon loops are noted with a few air-fluid levels, which may indicate ileus. Nodes and vessels: No retroperitoneal or mesenteric adenopathy by size criteria. Aorta and inferior vena cava are normal in caliber. Bones: No suspicious bony lesions. No vertebral body compression fractures. Miscellaneous: No ventral hernia is seen. IMPRESSION: 1. 3.6 x 3.6 x 3.6 cm fairly well-circumscribed hypodense structure involving lower pole of right kidney with no evidence of contrast enhancement and is only slightly increased in size compared to previous study. Finding is more suggestive of this being a benign renal cyst. Abscess collection or renal mass is much less likely given its current CT appearance. Urological correlation is recommended. This can be followed with renal ultrasound versus followup CT given the presence of pre-rectal fluid collection seen on previous CT study. 2. Distended colon loops with air-fluid levels which may indicate ileus. No peritoneal free fluid or free air is seen in the abdomen. Dictated by: Richy Arana M.D. on 10/06/2017 at 12:38 Approved by: Richy Arana M.D. on 10/06/2017 at 13:05
[2017-10-06 00:24] VITALS: BP 131/76; PULSE 88; RESP 16; TEMP 36.1; O2SAT 99
[2017-10-06] MEDS: DEXTROSE 5%-0.45NS W/KCL 40MEQ 1,000 ML 84 MEQ IV (01:47)
[2017-10-06] MEDS: PIPERACILLIN-TAZO 3.375 GM/50 ML FROZ.PIGGY IV ×2 (03:01→08:56)
[2017-10-06] MEDS: metroNIDAZOLE 500 MG/100 ML PIGGYBACK 100 MG IV ×2 (03:55→10:21)
[2017-10-06 05:22] LABS: Add Manual Diff / Slide Review NO; Basophils Percent Auto 0.8 % (0-2); Eosinophils Percent Auto 1.2 % (2-4); Hematocrit 40.1 % (41-53); Lymphocytes Percent Auto 13.9 % (25-40); Mean Corpuscular HGB Conc 32.5 % (30-36); Mean Corpuscular Hemoglobin 25.9 PG (26-34); Mean Corpuscular Volume 79.5 fL (80-100); Monocytes Percent Auto 6.2 % (3-14); Neutrophils Absolute Auto 11600 /uL (3000-5900); Neutrophils Percent Auto 77.9 % (50-75); Platelet Count 693 X10^3/uL (150-400); Red Blood Cell Count 5.04 X10^6/uL (4.5-5.9); Red Cell Distribution Width 14.8 % (11.6-14.8); White Blood Cell Count 14.8 X10^3/uL (4.5-11.0)
[2017-10-06 05:33] LABS: BUN Creatinine Ratio 6.7 (6-22); Blood Urea Nitrogen 6 mg/dL (9-20); Calcium 8.6 mg/dL (8.4-10.2); Carbon Dioxide 29 mmol/L (22-32); Chloride 107 mmol/L (98-107); Estimated Glomerular Filt Rate > 60.0 mL/min (>60); Glucose 86 mg/dL (70-100); HEMOLYSIS < 15 (0-50); Sodium 144 mmol/L (137-145)
[2017-10-06 05:45] VITALS: BP 139/88; PULSE 88; RESP 16; TEMP 36.9; O2SAT 99
[2017-10-06 08:00] VITALS: BP 136/80; PULSE 80; RESP 18; TEMP 37; O2SAT 98
--- NOTE | 2017-10-06 08:21 | PC.NURSE ---
CONTRAST GIVEN TO PT. AT APPROX 0710 INSTRUCTED TO DRINK TO INDICATED LINE. CONTRAST CONSUMED. PT OFF UNIT FOR SCAN. LEFT VIA W/C.
[2017-10-06] MEDS: ONDANSETRON 4 MG/2 ML INJ IV (09:03)
--- NOTE | 2017-10-06 09:07 | PC.NURSE ---
PT RETURNED FROM SCAN. RECONNECTED IVF. REFUSED BREAKFAST. PT REPORTS NAUSEA. 300 ML EMESIS. MEDICATED WITH ZOFRAN. IVF ABX INFUSING PER EMAR.
[2017-10-06 12:00] VITALS: BP 127/85; PULSE 80; RESP 18; TEMP 36.8; O2SAT 99
--- NOTE | 2017-10-06 12:02 | PC.NURSE ---
IV SITE TODAY. PT REFUSED REMOVAL AND NEW IV START. PT VERBALIZED UNDERSTANDING OF INFECTION RISKS.
--- NOTE | 2017-10-06 14:13 | PM.DS.1 ---
History of Present Illness Date Patient Seen: 10/06/17 Time Patient Seen: 14:13 Chief complaint: bad hemorrhoids, no bowel movement Narrative: Very pleasant gentleman admitted with peritoneal abscesses of unknown etiology. He was originally thought to have perianal abscesses but in fact his presentation is more consistent with inflammatory bowel disease and small-bowel micro perforation. On the day of admission, he was started on Augmentin and Flagyl. His admitting white blood cell count was 25,000. Discharge Providers Date of admission: 09/29/17 03:27 Consults: 09/29/17 03:59 Consult to General Surgery Routine Comment: Consulting Provider: Milton Lacy Reason for consultation: rectal abscess Has provider been notified: Yes Discharge provider: Sallie Velasquez MD Summary Discharge Diagnosis: Intraperitoneal abscesses of unknown etiology Urinary tract infection with sepsis Hospital Course: Derick was admitted and started on Augmentin and Flagyl as stated above. [place] [address] and stayed elevated for several days. He began to feel better and his diarrhea has slowly improved to intermittent more solid stools. He still suffers from nausea. He has been eating smoothies and protein shakes. He eats better when his family is around. Repeat CT scan done today revealed a fluid-filled lesion in his right kidney. Follow-up renal protocol study reveals this to be most consistent with a simple renal cyst. Blood cultures and urine cultures both grew E coli that was pansensitive. At this time, Derick is afebrile, walking unassisted, and tolerating a limited regular diet. He is being discharged to his home in the care of his grandparents. Discharge medication will include Levaquin. He will follow up with me in 2 weeks and have labs on the morning prior to his follow-up appointment. Prescription has been transmitted to the [place] pharmacy. Lab orders are in the computer. Status at Discharge Cognitive/behavioral status at discharge: Essentially normal Functional status at discharge: independent ambulation Overall status at discharge: patient is progressing back to baseline Time Spent with Patient Less than 30 minutes Exam Vital Signs (past 8 hours): - 10/06/17 08:00 10/06/17 12:00 Temperature 98.6 F 98.3 F Pulse Rate 80 80 Respiratory Rate 18 18 Blood Pressure 136/80 H 127/85 H Pulse Oximetry 98 99 Oxygen Delivery Method Room Air Oxygen Flow Rate 0 Objective Labs Result Diagrams: 10/06/17 04:45 10/06/17 04:45 Labs: Laboratory Results - last 24 hr 10/06/17 10/06/17 04:45 04:45 WBC 14.8 H RBC 5.04 Hgb 13.0 L Hct 40.1 L MCV 79.5 L MCH 25.9 L MCHC 32.5 RDW 14.8 Plt Count 693 H Neut % (Auto) 77.9 H Lymph % (Auto) 13.9 L [place] % (Auto) 6.2 Eos % (Auto) 1.2 L Baso % (Auto) 0.8 Neut # (Auto) 37184 H Sodium 144 Potassium 4.0 Chloride 107 Carbon Dioxide 29 BUN 6 L Creatinine 0.90 Estimated GFR > 60.0 BUN/Creatinine Ratio 6.7 Glucose 86 Calcium 8.6 Discharge Plan Discharge Plan Patient Disposition: Home, Self-Care Provider Discharge Instructions Diet: Diet as Tolerated Activity: As tolerated Wound Care Report to your healthcare provider any signs of infection, such as:: chills, fever, night sweats and increased pain Discharge Data Attending Provider: Milton Lacy Admit Date/Time: 09/29/17 03:27
== END 2017-10-06 15:00 | disposition home or self-care (01) | DRG 385 ==
LOC: ED 09-29 03:14 → AC 09-29 03:28
PROVIDERS: Surgery; Admitting Provider Surgery; Emergency Provider Emergency Medicine; Visit Provider Surgery
DX: K50.114 Crohn's disease of large intestine with abscess (principal); K65.1 Peritoneal abscess; R78.81 Bacteremia; N39.0 Urinary tract infection, site not specified; E66.9 Obesity, unspecified; Z68.33 Body mass index [BMI] 33.0-33.9, adult; Z87.891 Personal history of nicotine dependence; E87.6 Hypokalemia; B96.20 Unspecified Escherichia coli [E. coli] as the cause of diseases classified elsewhere
CPT/HCPCS: 36415; 36591; 74019; 74170; 74177; 80048; 80053; 81001; 83605; 83690; 85025; 87040; 87077; 87086; 87150; 87186; 87205; 87493; 96365; 96367; 96375; 99283; 99285; C9113; J2405; J2543; J3480; Q9967

== ENCOUNTER 2017-11-28 11:42 | Day surgery (SDC) | payer MEDICAID, SELFPAY ==
[2017-10-06 14:10] VITALS: BMI 33.3
[2017-11-28 12:18] VITALS: BP 125/83; PULSE 78; RESP 16; TEMP 37.3; O2SAT 98; BMI 33.0
[2017-11-28] MEDS: SODIUM CHLORIDE 0.9% 1,000 ML 200 ML IV (12:20)
[2017-11-28] MEDS: FLEETS ENEMA 1 EACH PR (12:30)
--- NOTE | 2017-11-28 12:47 | SUR.PREOP ---
pt used restroom, output cloudy with yellow sediment, dr jiménez notified, fleets enema given, output now brownish and can not see bottom of bowl.
--- NOTE | 2017-11-28 22:23 | SUR.PREOP ---
late entry: dr jiménez made aware of stool after fleets enema, case cancelled, pt referred to office to reschedule for tomorrow. pt left in stable;e condition.
== END 2017-11-28 14:00 | disposition home or self-care (01) ==
PROVIDERS: Visit Provider Surgery
PROC: 0DJD8ZZ Inspection of Lower Intestinal Tract, Via Natural or Artificial Opening Endoscopic (ICD-10-PCS; CPT 45378; principal; 2017-11-28 13:00)
DX: Z53.09 Procedure and treatment not carried out because of other contraindication (principal); K62.5 Hemorrhage of anus and rectum
CPT/HCPCS: 45378

== ENCOUNTER 2017-11-30 09:38 | Day surgery (SDC) | payer MEDICAID, OTHER, SELFPAY ==
[2017-10-06 14:10] VITALS: BMI 33.3
--- NOTE | 2017-11-30 | PATH_ITS ---
[facility] Accession Number: [id number] . 01 Material submitted: . RANDOM COLON MUCOSAL BIOPSIES . 02 Diagnosis: Random Colon, Biopsies: Colonic mucosa with no diagnostic abnormality. Negative for active or microscopic colitis. Negative for granulomata, dysplasia or malignancy. V/12/04/2017 . 02 Electronically signed: . Gunnar Hernandez MD, PhD, Pathologist NPI- [id number] . 01 Gross description: . RANDOM COLON MUCOSAL BIOPSIES: Received in formalin are 2 fragment(s) of tate, soft tissue measuring 0.6 x 0.5 x 0.1 cm to 0.6 x 0.4 x 0.1 cm submitted entirely in 1 cassette(s) /CKI /CKI . 02 Pathologist provided ICD-10: R19.4 . 02 CPT . 528277 Specimen Comment: A duplicate report has been generated due to demographic updates. Performed at: 01 [facility] [address] [facility], [place], [place] [id number] MD Mio Pete MD Phone: [phone] Performed at: 02 [facility] [address] [place], [place] [id number] MD Ryan Hall MD Phone: [phone]
[2017-11-30] MEDS: SODIUM CHLORIDE 0.9% 1,000 ML 200 ML IV (11:03)
[2017-11-30 11:05] VITALS: BP 121/79; PULSE 77; RESP 16; TEMP 37; O2SAT 98; BMI 33.0
--- NOTE | 2017-11-30 11:31 | PM.HP.1 ---
History of Present Illness Date Patient Seen: 11/30/17 Time Patient Seen: 11:32 Chief complaint: [id number] COLONOSCOPY Narrative: Derick is a very pleasant young man who is well known to me from his recent admission to the hospital. He was admitted with rectal bleeding and abdominal pain. He suffers from rheumatoid arthritis and presents today for a colonoscopy. He reports he has had no more rectal bleeding since being discharged from the hospital. Patient History Medical History Arthritis (Acute) Hemorrhoid (Acute) Family & Social History Family History: Reviewed 11/30/17 by Sallie Velasquez MD Social History: household members family Tobacco & Substance use: Smoking Status Former smoker alcohol intake never alcohol intake frequency 0-2 drinks per day Substance Use Type marijuana Meds Home Medications Medication Instructions Recorded Confirmed Type No Known Home Medications 11/30/17 11/30/17 History Allergies Allergy/AdvReac Type Severity Reaction Status Date / Time No Known Drug Allergies Allergy Verified 09/28/17 23:17 Review of Systems Review of Systems He reports significant bone and joint pain but says it is under better control now than it has been in the past few weeks. All systems reviewed & are unremarkable except as noted in HPI and below Exam Vital Signs (past 8 hours): - 11/30/17 11:05 Temperature 98.6 F Pulse Rate 77 Respiratory Rate 16 Blood Pressure 121/79 Pulse Oximetry 98 Oxygen Delivery Method Room Air Narrative Exam Narrative: Pleasant young man in no distress HEENT: Normocephalic and atraumatic, pupils equal round reactive to light accommodation with anicteric sclera Lungs: Clear to auscultation bilaterally Heart: Regular rate and rhythm without murmur rub or gallop Abdomen: Soft, nontender, active bowel sounds Extremities: Warm and well perfused Assessment & Plan Plan: Assessment/Plan Narrative: Very pleasant gentleman with recent admission to the hospital for what was thought to be colitis with rectal bleeding. We discussed the risks and benefits of colonoscopy with the patient he has expressed a desire to have the procedure.
[2017-11-30] MEDS: ONDANSETRON 4 MG/2 ML INJ IV (12:02)
[2017-11-30 12:13] VITALS: BP 121/86; PULSE 82; RESP 18; TEMP 36.3; O2SAT 95
[2017-11-30] MEDS: fentaNYL 250 MCG/5 ML INJ IV (12:14)
[2017-11-30] MEDS: MIDAZOLAM 5 MG/5 ML VIAL IV (12:15)
[2017-11-30 12:18] VITALS: BP 134/99; PULSE 86; RESP 20; O2SAT 95
[2017-11-30 12:23] VITALS: BP 134/94; PULSE 85; RESP 18; O2SAT 95
[2017-11-30 12:30] VITALS: BP 134/92; PULSE 88; RESP 20; TEMP 37.7; O2SAT 95
[2017-11-30 12:57] VITALS: BP 139/97; PULSE 91; RESP 14; TEMP 37; O2SAT 95
--- NOTE | 2017-11-30 17:09 | PM.OP.1 ---
Operative Date/Time/Diagnoses Date of procedure: 11/30/17 Time of procedure: 12:09 Pre-op diagnosis: Colitis Post-op diagnosis: same Procedure & Clinicians Procedure: Flexible sigmoidoscopy with biopsies Same procedure as scheduled: No (Colonoscopy was scheduled) Indications: No prior colonoscopy Surgeon: Sallie Velasquez Anesthesia Type: Sedation (Fentanyl and Versed) Operative Notes Findings: 1. Adequate prep 2. Unable to pass the scope beyond 40 cm due to collapse of the colon. May simply be an acute angle that I am not able to navigate. 3. Normal-appearing sigmoid colon and rectum 4. Grade 1 internal hemorrhoids Closure Type: not applicable Specimen(s): other (Random mucosal biopsies) Estimated Blood Loss (mL): 1 Procedure in detail: After obtaining informed consent, the patient was brought to the GI suite and placed in the left lateral decubitus position on the examination table. After placement of appropriate monitors, the patient was given incremental doses of Versed and Fentanyl until an appropriate level of sedation was achieved. A time out was held per SCOAP protocol. A digital rectal examination was performed and did not reveal any masses or obstructing lesions. The colonoscope was gently passed into the patient's anus and the colon navigated to approximately 40 cm. At this point there was either a fold or swelling in the colon that I was not able to navigate. Multiple changes of position as well as the external pressure were applied to try to reorient the colon. None of these maneuvers was successful. Due to safety concerns, I elected to abort the procedure at this level. The scope was then withdrawn be sure to go before and beyond mucosal folds and prominences that were visible. Multiple random mucosal biopsies were taken. At the level of the rectal vault, the scope was retroflexed and the internal anal canal was examined. The scope was straightened and air aspirated from the colon. The instrument was removed from the patient's body and the procedure was concluded.The patient was allowed to awaken from sedation without difficulty and taken to the post-anesthesia care unit in good condition. Complications: other (Unable to complete the scheduled procedure) Condition: stable Disposition: PACU Plan for aftercare: 1. Discharge to home 2. Plan for outpatient barium enema to complete the study 3. We will contact the patient with pathology results and any other recommendations 4. I would strongly recommended any further studies be scheduled with an anesthesiologist.
== END 2017-11-30 13:03 | disposition home or self-care (01) ==
PROVIDERS: PCP Family Medicine; Visit Provider Surgery
PROC: 0DJD8ZZ Inspection of Lower Intestinal Tract, Via Natural or Artificial Opening Endoscopic (ICD-10-PCS; CPT 45378; principal; 2017-11-30 11:45)
DX: K52.9 Noninfective gastroenteritis and colitis, unspecified (principal); K64.0 First degree hemorrhoids; Z87.891 Personal history of nicotine dependence; M06.9 Rheumatoid arthritis, unspecified
CPT/HCPCS: 45331; 88305; J2250; J2405; J3010

== ENCOUNTER → 2017-12-21 11:08 | Outpatient (CLI) | payer MEDICAID, OTHER, SELFPAY ==
[2017-10-06 14:10] VITALS: BMI 33.3
--- NOTE | 2017-12-21 11:12 | DI.RAD.S_ITS ---
PROCEDURE: FL ABDOMEN 1V (BARIUM ENEMA) INDICATIONS: Incomplete colonoscopy TECHNIQUE: One view of the abdomen acquired. COMPARISON: [facility], , PELVIS WITH BILATERAL HIPS, 06/21/2012, 15:39. FINDINGS: A scheduled barium enema was unable to be performed. The patient was unable to tolerate rectal catheterization Surgical changes and devices: None. Bowel: Bowel gas pattern is normal. Soft tissues: No suspicious abdominal calcifications. Visualized solid organ contours appear normal in size. Ankylosis of the sacroiliac joints bilaterally, chronic. Bilateral hip degeneration. IMPRESSION: Normal bowel gas pattern. Of note, scheduled barium enema was canceled as detailed above. 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 Dictated by: Shabbir Zuleta M.D. on 12/21/2017 at 13:31 Approved by: Shabbir Zuleta M.D. on 12/21/2017 at 13:36
== END ==
PROVIDERS: PCP Family Medicine; Visit Provider Surgery
DX: R93.3 Abnormal findings on diagnostic imaging of other parts of digestive tract (principal); M16.0 Bilateral primary osteoarthritis of hip; M43.28 Fusion of spine, sacral and sacrococcygeal region
CPT/HCPCS: 74018

== ENCOUNTER 2021-03-05 08:17 | Emergency (ER) | payer MEDICAID, OTHER, SELFPAY ==
[2017-10-06 14:10] VITALS: BMI 33.3
[2021-03-05 08:08] VITALS: PULSE 0; RESP 0
--- NOTE | 2021-03-05 08:42 | ED.CPR ---
HPI - CPR General Chief Complaint: Cardiac Arrest/CPR Stated Complaint: Overdose Time Seen by Provider: 03/05/21 08:41 History of Present Illness HPI narrative: Patient is a 40-year-old male who suffers from chronic pain mostly in his abdomen according to his mother he takes Tylenol and ibuprofen for he said it for multiple years. He recently felt sick a few days ago went to the clinic on [place] what happened there. This morning he collapsed in the living room as brother found down unresponsive started CPR. EMS gave him 2 doses narcan woke up and vomited, however again quickly lost pulses went into a V-tach arrest was shocked given amiodarone then went into asystole given epinephrine placed on epinephrine drip. Pulses have never yet been regained her down time is about 40 minutes. No known history history of opioid abuse. Related Data Home Medications Medication Instructions Recorded Confirmed No Known Home Medications 11/30/17 11/30/17 Allergies Allergy/AdvReac Type Severity Reaction Status Date / Time No Known Drug Allergies Allergy Verified 03/05/21 09:16 Review of Systems Review of Systems ROS Unobtainable: Unobtainable due to medical condition Patient History Medical History (Updated 03/05/21 @ 09:11 by Keesha Cheatham DO) Arthritis Hemorrhoid Family History Grandfather Hypertension Heart disease Social History household members: family Smoking Status: Former smoker alcohol intake: never substance use type: marijuana Smoking Status: Former smoker alcohol intake frequency: 0-2 drinks per day Substance Use Type: marijuana Exam Initial Vital Signs Initial Vital Signs: Vital Signs Pulse Rate 0 L 03/05/21 08:08 Respiratory Rate 0 L 03/05/21 08:08 Gen.: Unresponsive cyanotic intubated HEENT: Fixed nonresponsive Neck: No carotid pulses no JVD Lungs: No air Cardiac: No pulses no cardiac activity Abdomen: Soft Extremities: No gross bony deformities cool to touch Neurologic: Unresponsive, GCS 3 Skin: Mottled Course Orders Ordered: ED Orders 03/05/21 08:32 COVID19 -Nasal swab/Pre-Proc Stat MDM - Cardiac Arrest/CPR Lab Data Labs: Lab Results 03/05/21 Range/Units 08:32 SARS-CoV-2 (PCR) Negative (Negative) MDM Narrative Medical decision making narrative: ACLS protocol followed he is given more epinephrine CPR continued pulse check he remains in asystole. Down time now for 45 minutes no cardiac activity seen on ultrasound. He remains cool and cyanotic. Time of 8:31 a.m. Discharge Plan Departure Patient Disposition: Clinical Impression: Cardiac arrest Date/Time: 03/05/21 08:31
--- NOTE | 2021-03-05 08:50 | RT ---
Called to ER for Full Arrest, pt arrived intubated by medics. MD at bedside, Cpr continued and pt bagged with 100% Fio2 and peep valve on at 5 and etco2 placed. Et tube secure and pt suctioned orally for gastric secretions. Code called by Dr. Cheatham at 0817.
[2021-03-05 08:54] LABS: COVID19 -Nasal RAPID Negative (Negative)
--- NOTE | 2021-03-05 08:59 | RT ---
Called to code blue with pt intubated in the field arrived with CPR in progress. ET tube secured pt bagged at 100% FiO2 and PEEP of 5, EtCo2 placed, suction at bedside to assist with gastric secretions, Dr. Cheatham called off interventions at 08:17.
== END 2021-03-05 12:20 | disposition expired ==
PROVIDERS: Emergency Provider Emergency Medicine; PCP Family Medicine
DX: I46.9 Cardiac arrest, cause unspecified (principal); Z20.822 Contact with and (suspected) exposure to COVID-19
CPT/HCPCS: 87635; 92950; 99283; 99285; C9803